=== PATIENT | female | born 1940 | race Caucasian/White ===

== ENCOUNTER → 2016-11-09 | Outpatient (CLI) | payer MEDICARE, BC ==
--- NOTE | 2016-11-12 09:45 | MM ---
Reason for exam: screening (asymptomatic). Last mammogram was performed 1 year and 1 month ago. History: Patient is postmenopausal. Benign stereotactic core biopsy of the right breast, March 25, 2003. Core biopsy of the right breast. Excisional biopsy of the left breast. 2 excisional biopsies of the right breast. Took estrogen for 23 years 5 months. Physical Findings: A clinical breast exam by your physician is recommended on an annual basis and results should be correlated with mammographic findings. MG 3D Screening Mammo W/Cad Bilateral CC and MLO view(s) were taken. Prior study comparison: October 06, 2015, bilateral MG 3d screening mammo w/cad. August 23, 2014, bilateral MG screening mammo w CAD. August 19, 2013, bilateral MG screening mammo w CAD. The breast tissue is heterogeneously dense. This may lower the sensitivity of mammography. There are bilateral stable masses. No suspicious abnormality. No significant changes when compared with prior studies. ASSESSMENT: Benign, BI-RAD 2 RECOMMENDATION: Routine screening mammogram of both breasts in 1 year.
--- NOTE | 2016-11-12 12:00 | BD ---
EXAMINATION TYPE: MG DEXA axial skeleton. DATE OF EXAM: 11/09/2016 COMPARISON: 08.23.2014 CLINICAL HISTORY: M89.9 OSTEOPENIA Height: 62 Weight: 184 FRAX RISK QUESTIONS: Alcohol (3 or more units per day): NO Family History (Parent hip fracture): NO Glucocorticoids (More than 3mos): NO (Ex: prednisone, prednisolone, methylprednisolone, dexamethasone, and hydrocortisone). History of Fracture in Adulthood: NO Secondary Osteoporosis: NO 1. Type 1 Diabetes: NO INSULIN 2. Hyperthyroidism: NO 3. Menopause before 45: YES 4. Malnutrition: NO 5. Chronic liver disease: NO Rheumatoid Arthritis: NO Current Tobacco Use: NO RISK FACTORS HISTORY OF: Family History of Osteoporosis: NONE KNOWN Active: YES Diet low in dairy products/other sources of calcium: NO Postmenopausal woman: HYST AT 30 YRS OLD, UNSURE OF WHEN HORMONAL MENOPAUSE OCCURRED. Take estrogen and/or progesterone medications: IN PAST FOR 20 YRS How lon YRS Lost more than 2 inches in height since high school: UNSURE Frequent falls: STROKE VICTIM Hyperparathyroidism: NO Adrenal Insufficiency: NO MEDICATIONS: Thyroid Medications: YES, SYNTHROID How Lon YRS Additional Medications: BP MEDS, HEART MEDS, DIABETIC MEDS, REFLUX MED, STATINS FOR CHOLESTEROL, CALC IUM AND VIT D Additional History: HX OF 2 STROKES, HYPERTENSION, DIABETES, HEART DISEASE EXAM MEASUREMENTS: Bone mineral densitometry was performed using the 51edj System. Bone mineral density as measured about the Lumbar spine is: ----- L1-L4(G/cm2): 1.543 T Score Values are as follows: ----- L1: 0.4 ----- L2: 3.0 ----- L3: 4.7 ----- L4: 3.8 ----- L1-L4: 3.0 Bone mineral density has: Increased 6.1% since study of: 08.23.2014 Bone mineral density about the R hip (g/cm2): 0.932 Bone mineral density about the L hip (g/cm2): 1.044 T Score values are as follows: -----R Neck: -1.2 -----L Neck: -0.9 -----R Total: -0.6 -----L Total: 0.3 Bone mineral density has: Increased 1.9% since study of: 08.23.2014 FRAX%'S: THERE IS A 10.3% CHANCE OF A MAJOR OSTEOPOROTIC FX AND A 1.8% CHANCE FOR HIP FX....PROBABI LITY IN 10 YRS TIME IMPRESSION: Osteopenia (T Score between -2.5 and -1) as noted by T score values There is slightly increased risk of fracture and the patient may be considered for treatment. Re-Screen 2-5 years FOR THE RIGHT HIP ONLY AT THE NECK. NOTE: T-SCORE=SD OF THE YOUNG ADULT MEAN.
== END | disposition home or self-care (01) ==
LOC: RADMAMWWP 11:39
PROVIDERS: ATTEND Obstetrics & Gynecology
DX: Z12.31 Encounter for screening mammogram for malignant neoplasm of breast (principal); M85.80 Other specified disorders of bone density and structure, unspecified site
CPT/HCPCS: 77080; 77063; G0202

== ENCOUNTER → 2017-04-24 | Outpatient (CLI) | payer MEDICARE, BC ==
[2017-04-24 08:56] LABS: HCT 41.6 % (34.0-46.0); HGB 13.1 gm/dL (11.4-16.0); MCH 29.3 pg (25.0-35.0); MCHC 31.5 g/dL (31.0-37.0); MCV 93.1 fL (80.0-100.0); Mean Platelet Volume 7.2; Platelet Count 323 k/uL (150-450); RBC 4.47 m/uL (3.80-5.40); RDW 14.2 % (11.5-15.5); WBC 8.5 k/uL (3.8-10.6)
[2017-04-24 12:05] LABS: ALT 29 U/L (9-52); AST 26 U/L (14-36); Albumin 4.3 g/dL (3.5-5.0); Alkaline Phosphatase 86 U/L (38-126); Anion Gap 12 mmol/L; Blood Urea Nitrogen 18 mg/dL (7-17); Carbon Dioxide 26 mmol/L (22-30); Chloride 101 mmol/L (98-107); Cholesterol 157 mg/dL (<200); Glucose 115 mg/dL (74-99); HDL Cholesterol 41 mg/dL (40-60); LDL Cholesterol,Calculated 48 mg/dL (0-99); Sodium 139 mmol/L (137-145); Total Bilirubin 0.3 mg/dL (0.2-1.3); Total Protein 6.8 g/dL (6.3-8.2); Triglycerides 338 mg/dL (<150)
[2017-04-24 12:19] LABS: T4, Free (Free Thyroxine) 1.06 ng/dL (0.78-2.19)
[2017-04-24 19:05] LABS: Hemoglobin A1C 6.3 % (4.0-6.0)
== END | disposition home or self-care (01) ==
LOC: LABWHC1 08:16
PROVIDERS: ATTEND Internal Medicine
DX: Z00.01 Encounter for general adult medical examination with abnormal findings (principal); E11.9 Type 2 diabetes mellitus without complications; I11.9 Hypertensive heart disease without heart failure; E03.9 Hypothyroidism, unspecified; K21.0 Gastro-esophageal reflux disease with esophagitis; E78.2 Mixed hyperlipidemia
CPT/HCPCS: 36415; 80053; 80061; 82043; 82570; 83036; 84439; 84443; 85027

== ENCOUNTER → 2017-11-14 | Outpatient (CLI) | payer MEDICARE, BC ==
--- NOTE | 2017-11-15 11:31 | MM ---
Reason for exam: screening (asymptomatic). Last mammogram was performed 1 year ago. History: Patient is postmenopausal and history of other cancer. Family history of breast cancer in 2 maternal aunts. Benign stereotactic core biopsy of the right breast, March 25, 2003. Core biopsy of the right breast. Excisional biopsy of the left breast. 2 excisional biopsies of the right breast. Took estrogen for 23 years 5 months. Physical Findings: A clinical breast exam by your physician is recommended on an annual basis and results should be correlated with mammographic findings. MG 3D Screening Mammo W/Cad Bilateral CC and MLO view(s) were taken. Prior study comparison: November 09, 2016, bilateral MG 3d screening mammo w/cad. October 06, 2015, bilateral MG 3d screening mammo w/cad. The breast tissue is heterogeneously dense. This may lower the sensitivity of mammography. There are benign appearing round calcifications bilaterally. There is chronic nodularity bilaterally. ASSESSMENT: Benign, BI-RAD 2 RECOMMENDATION: Routine screening mammogram of both breasts in 1 year.
== END ==
LOC: RADMAMWWP 10:10
PROVIDERS: ATTEND Obstetrics & Gynecology
DX: Z12.31 Encounter for screening mammogram for malignant neoplasm of breast (principal)
CPT/HCPCS: 77063; 77067

== ENCOUNTER 2018-04-28 09:55 | Emergency (ER) | payer MEDICARE, BC ==
[2018-04-28] MEDS ORDERED: SODIUM CHLORIDE 0.9% 1,000 ML IV STA (10:25)
--- NOTE | 2018-04-28 10:44 | ED ---
Abdominal Pain HPI - General Chief Complaint: Abdominal Pain Stated Complaint: lower abdominal pain Time Seen by Provider: 04/28/18 10:19 Source: patient, RN notes reviewed Mode of arrival: ambulatory Limitations: no limitations - History of Present Illness Initial Comments: 78-year-old female presents emergency Department chief complaint lower abdominal pain. Patient states she's had extreme pain for last 3 days. She did have some relief after a bowel movement today. Patient states pain is still present denies any dysuria no hematuria. Patient has a history of diverticulosis with no recent infections. Patient denies any bloody stools, mucousy stools. Patient has no current nausea vomiting. Patient reports fever 2 nights ago no current fever. Denies any chest pain or shortness breath. - Related Data Home Medications Medication Instructions Recorded Confirmed Atenolol [Tenormin] 50 mg PO DAILY 08/20/13 04/28/18 Calcium Carbonate/Vitamin D3 1 tab PO DAILY 08/20/13 04/28/18 [Caltrate 600 + D Tablet] Levothyroxine Sodium [Synthroid] 50 mcg PO DAILY 08/20/13 04/28/18 Multivitamins, Thera [Multivitamin] 1 tab PO DAILY 08/20/13 04/28/18 Omeprazole [PriLOSEC] 20 mg PO DAILY 08/20/13 04/28/18 Propafenone [Rythmol] 150 mg PO BID 08/20/13 04/28/18 Simvastatin [Zocor] 40 mg PO HS 08/20/13 04/28/18 Losartan Potassium 50 mg PO DAILY 04/28/18 04/28/18 glipiZIDE [Glucotrol] 2.5 mg PO AC-BRKFST 04/28/18 04/28/18 hydrALAZINE HCL [Apresoline] 50 mg PO TID 04/28/18 04/28/18 Previous Rx's Medication Instructions Recorded Ciprofloxacin HCl [Cipro] 500 mg PO Q12HR #20 tablet 04/28/18 metroNIDAZOLE [Flagyl] 500 mg PO TID #30 tab 04/28/18 Allergies Allergy/AdvReac Type Severity Reaction Status Date / Time No Known Allergies Allergy Verified 04/28/18 12:02 Review of Systems ROS Statement: Those systems with pertinent positive or pertinent negative responses have been documented in the HPI. ROS Other: All systems not noted in ROS Statement are negative. Past Medical History Past Medical History: CVA/TIA, Diabetes Mellitus, Deep Vein Thrombosis (DVT), GERD/Reflux, Hyperlipidemia, Hypertension, Memory Impairment Additional Past Medical History / Comment(s): change in bowel habits, DVT years ago during a History of Any Multi-Drug Resistant Organisms: None Reported Past Surgical History: Hysterectomy, Tonsillectomy Past Anesthesia/Blood Transfusion Reactions: No Reported Reaction Past Psychological History: No Psychological Hx Reported Smoking Status: Former smoker Past Alcohol Use History: None Reported Past Drug Use History: None Reported General Exam Limitations: no limitations General appearance: alert, in no apparent distress Head exam: Present: atraumatic, normocephalic, normal inspection Eye exam: Present: normal appearance, PERRL, EOMI. Absent: scleral icterus, conjunctival injection, periorbital swelling ENT exam: Present: normal exam, normal oropharynx, mucous membranes moist, TM's normal bilaterally Neck exam: Present: normal inspection, full ROM. Absent: tenderness, meningismus, lymphadenopathy Respiratory exam: Present: normal lung sounds bilaterally. Absent: respiratory distress, wheezes, rales, rhonchi, stridor Cardiovascular Exam: Present: regular rate, normal rhythm, normal heart sounds. Absent: systolic murmur, diastolic murmur, rubs, gallop, clicks GI/Abdominal exam: Present: soft, tenderness (Mild to moderate lower abdominal) , normal bowel sounds. Absent: distended, guarding, rebound, rigid Back exam: Absent: CVA tenderness (R), CVA tenderness (L) Skin exam: Present: warm, dry, intact, normal color. Absent: rash Course Vital Signs 04/28/18 10:06 Temperature 97.5 F L Pulse Rate 74 Respiratory 20 Rate Blood Pressure 186/88 O2 Sat by Pulse 99 Oximetry Medical Decision Making - Medical Decision Making 78-year-old female presented for abdominal pain. CT shows evidence of acute diverticulitis rule out concentric mass after treatment with colonoscopy. Patient was offered admission to the hospital though she declines. She would rather try oral pills at this time I did one of the risk and complications. She understands. She'll follow-up with her PCP and will follow-up for colonoscopy. - Lab Data Result diagrams: 04/28/18 11:05 04/28/18 11:05 Lab Results 04/28/18 04/28/18 04/28/18 Range/Units 11:05 11:05 11:05 WBC 7.8 (3.8-10.6) k/uL RBC 4.50 (3.80-5.40) m/uL Hgb 13.7 (11.4-16.0) gm/dL Hct 41.1 (34.0-46.0) % MCV 91.3 (80.0-100.0) fL MCH 30.4 (25.0-35.0) pg MCHC 33.3 (31.0-37.0) g/dL RDW 13.7 (11.5-15.5) % Plt Count 308 (150-450) k/uL Neutrophils % 59 % Lymphocytes % 27 % Monocytes % 8 % Eosinophils % 3 % Basophils % 1 % Neutrophils # 4.6 (1.3-7.7) k/uL Lymphocytes # 2.1 (1.0-4.8) k/uL Monocytes # 0.6 (0-1.0) k/uL Eosinophils # 0.3 (0-0.7) k/uL Basophils # 0.1 (0-0.2) k/uL Sodium 138 (137-145) mmol/L Potassium 5.1 (3.5-5.1) mmol/L Chloride 104 (98-107) mmol/L Carbon Dioxide 25 (22-30) mmol/L Anion Gap 9 mmol/L BUN 24 H (7-17) mg/dL Creatinine 0.91 (0.52-1.04) mg/dL Est GFR (CKD-EPI)AfAm 70 (>60 ml/min/1.73 sqM) Est GFR (CKD-EPI)NonAf 61 (>60 ml/min/1.73 sqM) Glucose 86 (74-99) mg/dL Plasma Lactic Acid [place] 1.1 (0.7-2.0) mmol/L Calcium 10.0 (8.4-10.2) mg/dL Total Bilirubin 0.8 (0.2-1.3) mg/dL AST 41 H (14-36) U/L ALT 32 (9-52) U/L Alkaline Phosphatase 61 (38-126) U/L Total Protein 8.0 (6.3-8.2) g/dL Albumin 4.5 (3.5-5.0) g/dL Amylase 87 (30-110) U/L Lipase 185 (23-300) U/L Urine Color Urine Appearance (Clear) Urine pH (5.0-8.0) Ur Specific [place] (1.001-1.035) Urine Protein (Negative) Urine Glucose (UA) (Negative) Urine Ketones (Negative) Urine Blood (Negative) Urine Nitrite (Negative) Urine Bilirubin (Negative) Urine Urobilinogen (<2.0) mg/dL Ur Leukocyte Esterase (Negative) 04/28/18 Range/Units 11:05 WBC (3.8-10.6) k/uL RBC (3.80-5.40) m/uL Hgb (11.4-16.0) gm/dL Hct (34.0-46.0) % MCV (80.0-100.0) fL MCH (25.0-35.0) pg MCHC (31.0-37.0) g/dL RDW (11.5-15.5) % Plt Count (150-450) k/uL Neutrophils % % Lymphocytes % % Monocytes % % Eosinophils % % Basophils % % Neutrophils # (1.3-7.7) k/uL Lymphocytes # (1.0-4.8) k/uL Monocytes # (0-1.0) k/uL Eosinophils # (0-0.7) k/uL Basophils # (0-0.2) k/uL Sodium (137-145) mmol/L Potassium (3.5-5.1) mmol/L Chloride (98-107) mmol/L Carbon Dioxide (22-30) mmol/L Anion Gap mmol/L BUN (7-17) mg/dL Creatinine (0.52-1.04) mg/dL Est GFR (CKD-EPI)AfAm (>60 ml/min/1.73 sqM) Est GFR (CKD-EPI)NonAf (>60 ml/min/1.73 sqM) Glucose (74-99) mg/dL Plasma Lactic Acid [place] (0.7-2.0) mmol/L Calcium (8.4-10.2) mg/dL Total Bilirubin (0.2-1.3) mg/dL AST (14-36) U/L ALT (9-52) U/L Alkaline Phosphatase (38-126) U/L Total Protein (6.3-8.2) g/dL Albumin (3.5-5.0) g/dL Amylase (30-110) U/L Lipase (23-300) U/L Urine Color Light Yellow Urine Appearance Clear (Clear) Urine pH 5.5 (5.0-8.0) Ur Specific [place] 1.004 (1.001-1.035) Urine Protein Negative (Negative) Urine Glucose (UA) Negative (Negative) Urine Ketones Negative (Negative) Urine Blood Negative (Negative) Urine Nitrite Negative (Negative) Urine Bilirubin Negative (Negative) Urine Urobilinogen <2.0 (<2.0) mg/dL Ur Leukocyte Esterase Negative (Negative) Disposition Clinical Impression: Diverticulitis Disposition: HOME SELF-CARE Condition: Stable Instructions (If sedation given, give patient instructions): Diverticulitis (ED ) Additional Instructions: Please return to the Emergency Department if symptoms worsen or any other concerns. Prescriptions: Ciprofloxacin HCl [Cipro] 500 mg PO Q12HR #20 tablet metroNIDAZOLE [Flagyl] 500 mg PO TID #30 tab Is patient prescribed a controlled substance at d/c from ED?: No Referrals: Amos Vu MD [Primary Care Provider] - 1-2 days Time of Disposition: 13:03
[2018-04-28 11:23] LABS: Basophils # (A) 0.1 k/uL (0-0.2); Basophils % (A) 1 %; Eosinophils # (A) 0.3 k/uL (0-0.7); Eosinophils % (A) 3 %; HCT 41.1 % (34.0-46.0); HGB 13.7 gm/dL (11.4-16.0); Lymphocytes # (A) 2.1 k/uL (1.0-4.8); Lymphocytes % (A) 27 %; MCH 30.4 pg (25.0-35.0); MCHC 33.3 g/dL (31.0-37.0); MCV 91.3 fL (80.0-100.0); Mean Platelet Volume 6.8; Monocytes # (A) 0.6 k/uL (0-1.0); Monocytes % (A) 8 %; Neutrophils # (A) 4.6 k/uL (1.3-7.7); Neutrophils % (A) 59 %; Platelet Count 308 k/uL (150-450); RDW 13.7 % (11.5-15.5); WBC 7.8 k/uL (3.8-10.6)
[2018-04-28 11:24] LABS: Appearance,Urine Clear (Clear); Bilirubin,Urine Negative (Negative); Blood,Urine Negative (Negative); Color,Urine Light Yellow; Glucose,Urine (UA) Negative (Negative); Ketones,Urine Negative (Negative); Leukocyte Esterase,Urine Negative (Negative); Nitrite,Urine Negative (Negative); PH, Urine 5.5 (5.0-8.0); Protein,Urine Negative (Negative); Specific Gravity,Urine 1.004 (1.001-1.035); Urobilinogen,Urine <2.0 mg/dL (<2.0)
[2018-04-28 12:00] LABS: Total Bilirubin 0.8 mg/dL (0.2-1.3)
[2018-04-28 12:03] LABS: Albumin 4.5 g/dL (3.5-5.0); Potassium 5.1 mmol/L (3.5-5.1)
--- NOTE | 2018-04-28 12:41 | CT ---
EXAMINATION TYPE: CT abdomen pelvis w con DATE OF EXAM: 04/28/2018 HISTORY: Generalized abdominal pain. CT DLP: 902.6mGycm Automated Exposure Control for Dose Reduction was Utilized. CONTRAST: CT scan of the abdomen and pelvis is performed without oral but with IV Contrast, patient injected wi th 100 mL of Isovue 300. COMPARISON: CT abdomen pelvis May 08, 2012 FINDINGS: LUNG BASES: No significant abnormality is appreciated. LIVER/GB: No significant abnormality is appreciated. PANCREAS: No significant abnormality is seen. SPLEEN: No significant abnormality is seen. ADRENALS: No significant abnormality is seen. KIDNEYS: No significant abnormality is seen. BOWEL: Evaluation bowel is suboptimal secondary to lack of enteric contrast. Stomach is poorly disten ded and thus suboptimally evaluated. Normal-appearing appendix is seen descending from the cecum in t he right pelvis. No suspicious small or large bowel dilatation is present. There is mild wall thicken ing involving the mid to distal left colon extending into the proximal sigmoid colon. There is divert icular formation with moderate to severe focal wall thickening and mild ill-defined fluid and fat str anding in the mid sigmoid colon of the left pelvis near axial image 71. Mild wall thickening past thi s point in the mid to distal sigmoid colon is present. UTERUS/ADNEXA: Uterus is surgically absent or markedly atrophic. Scattered pelvic phleboliths are see n. LYMPH NODES: No greater than 1cm abdominal or pelvic lymph nodes are appreciated. OSSEOUS STRUCTURES: No significant abnormality is seen. OTHER: No significant additional abnormality is seen. IMPRESSION: New mild to moderate acute diverticulitis involving proximal to mid sigmoid colon centere d in the pelvis just left of midline. Correlate clinically. Follow-up colonoscopy after treatment adv ised if has not been performed in last 3-5 years to rule out concentric neoplasm.
[2018-04-28 13:14] VITALS: BP 161/88; PULSE 54; RESP 18; TEMP 97.1
== END 2018-04-28 13:14 | disposition home or self-care (01) ==
LOC: EC 09:55
DX: K57.92 Diverticulitis of intestine, part unspecified, without perforation or abscess without bleeding (principal); E11.9 Type 2 diabetes mellitus without complications; K21.9 Gastro-esophageal reflux disease without esophagitis; E78.5 Hyperlipidemia, unspecified; I10 Essential (primary) hypertension; Z87.891 Personal history of nicotine dependence; Z79.899 Other long term (current) drug therapy
CPT/HCPCS: 36415; 80053; 82150; 83605; 83690; 85025; 81003; 74177; 99284; 96360; 96361; Q9967

== ENCOUNTER → 2018-05-23 | Outpatient (CLI) | payer MEDICARE, BC ==
[2018-05-23 09:16] LABS: HCT 40.9 % (34.0-46.0); HGB 13.6 gm/dL (11.4-16.0); MCH 30.7 pg (25.0-35.0); MCHC 33.2 g/dL (31.0-37.0); MCV 92.6 fL (80.0-100.0); Mean Platelet Volume 6.8; Platelet Count 224 k/uL (150-450); RBC 4.41 m/uL (3.80-5.40); RDW 14.4 % (11.5-15.5); WBC 6.6 k/uL (3.8-10.6)
[2018-05-23 16:19] LABS: Albumin 4.4 g/dL (3.80-4.90); Albumin/Globulin Ratio 2.59 (1.60-3.17); Anion Gap 7.9 mmol/L (4.00-12.00); Calcium 9.4 mg/dL (8.7-10.3); Carbon Dioxide 25.1 mmol/L (21.6-31.8); Globulin 1.7 g/dL (1.6-3.3); LDL Cholesterol,Calculated 64.4 mg/dL (0.0-131.0); Potassium 4.8 mmol/L (3.5-5.5); Total Bilirubin 0.4 mg/dL (0.2-1.2); Total Protein 6.1 g/dL (6.2-8.2); VLDL Calculation 40.6 mg/dL (5.00-40.00)
[2018-05-23 16:27] LABS: T4, Free (Free Thyroxine) 1.1 ng/dL (0.80-1.80)
[2018-05-23 22:27] LABS: Hemoglobin A1C 6.3 % (4.0-6.0)
== END | disposition home or self-care (01) ==
LOC: LABWHC1 07:44
PROVIDERS: ATTEND Internal Medicine
DX: Z00.00 Encounter for general adult medical examination without abnormal findings (principal); E11.9 Type 2 diabetes mellitus without complications; I11.9 Hypertensive heart disease without heart failure; K21.0 Gastro-esophageal reflux disease with esophagitis; E03.9 Hypothyroidism, unspecified
CPT/HCPCS: 36415; 80053; 80061; 82043; 82570; 83036; 84439; 84443; 85027

== ENCOUNTER 2018-09-01 09:41 | Emergency (ER) | payer MEDICARE, BC ==
[2018-09-01 09:57] VITALS: TEMP 98
--- NOTE | 2018-09-01 10:16 | ED ---
General Adult HPI - General Chief complaint: Altered Mental Status Stated complaint: confusion, hx strokes Time Seen by Provider: 09/01/18 09:49 Source: patient, family, RN notes reviewed Mode of arrival: wheelchair Limitations: no limitations - History of Present Illness Initial comments: Patient is a pleasant 78-year-old female presenting to the emergency department with confusion and mental status problems. Symptoms have been present for more than a week now. Symptoms are intermittent. Patient has problems with her memory, sometimes as soon as 10 seconds after performing a function. Patient has had expressive aphasia. Patient states she is able to think of what she wants to say however different words come out. There has been no slurred speech. No isolated area of weakness. Patient does have history of similar symptoms previously associated with TIAs. Patient does have a history of intercranial hemorrhage with associated symptoms approximately 7 years ago. No surgery was done at that time. However patient was transferred to hospital. Patient does have a headache that started yesterday and has been intermittent. Headache was not sudden onset. Discomfort is currently 5/10. - Related Data Home Medications Medication Instructions Recorded Confirmed Atenolol [Tenormin] 50 mg PO DAILY 08/20/13 09/01/18 Calcium Carbonate/Vitamin D3 1 tab PO DAILY 08/20/13 09/01/18 [Caltrate 600 + D Tablet] Levothyroxine Sodium [Synthroid] 50 mcg PO DAILY 08/20/13 09/01/18 Omeprazole [PriLOSEC] 20 mg PO DAILY 08/20/13 09/01/18 Propafenone [Rythmol] 150 mg PO DAILY 08/20/13 09/01/18 Simvastatin [Zocor] 40 mg PO HS 08/20/13 09/01/18 hydrALAZINE HCL [Apresoline] 50 mg PO TID 04/28/18 09/01/18 Losartan Potassium 50 mg PO DAILY 09/01/18 09/01/18 Multivit-Min/Iron/Folic/Lutein 1 tab PO DAILY 09/01/18 09/01/18 [Centrum Silver Women Tablet] glipiZIDE XL [Glucotrol Xl] 2.5 mg PO DAILY 09/01/18 09/01/18 Allergies Allergy/AdvReac Type Severity Reaction Status Date / Time No Known Allergies Allergy Verified 09/01/18 10:33 Review of Systems ROS Statement: Those systems with pertinent positive or pertinent negative responses have been documented in the HPI. ROS Other: All systems not noted in ROS Statement are negative. Constitutional: Denies: fever Eyes: Denies: eye pain ENT: Denies: ear pain Respiratory: Denies: cough Cardiovascular: Denies: chest pain Endocrine: Denies: fatigue Gastrointestinal: Denies: abdominal pain Genitourinary: Denies: dysuria Musculoskeletal: Denies: back pain Skin: Denies: rash Neurological: Reports: headache, confusion. Denies: weakness Past Medical History Past Medical History: CVA/TIA, Diabetes Mellitus, Deep Vein Thrombosis (DVT), GERD/Reflux, Hyperlipidemia, Hypertension, Memory Impairment Additional Past Medical History / Comment(s): change in bowel habits, DVT years ago during a History of Any Multi-Drug Resistant Organisms: None Reported Past Surgical History: Hysterectomy, Tonsillectomy Past Anesthesia/Blood Transfusion Reactions: No Reported Reaction Past Psychological History: No Psychological Hx Reported Smoking Status: Former smoker Past Alcohol Use History: None Reported Past Drug Use History: None Reported General Exam Limitations: no limitations General appearance: alert, in no apparent distress Head exam: Present: atraumatic, normocephalic Eye exam: Present: normal appearance, PERRL, EOMI ENT exam: Present: normal oropharynx Neck exam: Present: normal inspection Respiratory exam: Present: normal lung sounds bilaterally Cardiovascular Exam: Present: regular rate, normal rhythm GI/Abdominal exam: Present: soft. Absent: tenderness Extremities exam: Present: normal inspection. Absent: pedal edema, calf tender ness Neurological exam: Present: alert, CN II-XII intact. Absent: motor sensory deficit Expanded Neurological exam: Present: protecting the airway Patient oriented to: Present: person, place. Absent: time Cranial nerves: EOM's Intact: Normal, Facial Sensation: Normal Sensory exam: Upper Extremity Light Touch: Normal, Lower Extremity Light Touch: Normal Motor strength exam: RUE: 5, LUE: 5, RLE: 5, LLE: 5 Eye Response: (4) open spontaneously Motor Response: (6) obeys commands Verbal Response: (4) confused conversation Psychiatric exam: Present: normal affect, normal mood Skin exam: Present: normal color Course Vital Signs 09/01/18 09/01/18 09/01/18 09:52 10:15 10:30 Temperature 98.0 F Pulse Rate 74 66 60 Respiratory 18 17 17 Rate Blood Pressure 152/86 198/97 190/100 O2 Sat by Pulse 96 95 95 Oximetry - Reevaluation(s) Reevaluation #1: 09/01/18 11:48 Patient is not considered a TPA candidate secondary to onset of symptoms greater than 4.5 hours. 09/01/18 13:15 Case was discussed with Dr. Vu who does recommend transfer of this patient. He is not comfortable with neurology coverage not been present at nighttime as well as possibility of neoplasm. Patient and family reevaluated and updated. They are in agreement with transfer to [facility]. Case was discussed in detail with Dr. Naayk, who will accept transfer. Case was also discussed with Dr. Gil who does recommend aspirin and agreeable to transfer. He did review films including CTA. EKG Findings - EKG Comments: EKG Findings:: Sinus rhythm at 66. For screening AV block CA of 234. QRS 94. QT 398. QTC 417. Normal axis. Normal QRS. No acute ST change. Medical Decision Making - Lab Data Result diagrams: 09/01/18 10:15 09/01/18 10:15 Lab Results 09/01/18 09/01/18 09/01/18 Range/Units 10:15 10:15 10:15 WBC 7.0 (3.8-10.6) k/uL RBC 4.48 (3.80-5.40) m/uL Hgb 13.3 (11.4-16.0) gm/dL Hct 40.7 (34.0-46.0) % MCV 90.7 (80.0-100.0) fL MCH 29.7 (25.0-35.0) pg MCHC 32.8 (31.0-37.0) g/dL RDW 14.2 (11.5-15.5) % Plt Count 268 (150-450) k/uL Neutrophils % 64 % Lymphocytes % 26 % Monocytes % 5 % Eosinophils % 3 % Basophils % 1 % Neutrophils # 4.4 (1.3-7.7) k/uL Lymphocytes # 1.8 (1.0-4.8) k/uL Monocytes # 0.3 (0-1.0) k/uL Eosinophils # 0.2 (0-0.7) k/uL Basophils # 0.1 (0-0.2) k/uL PT 10.4 (9.0-12.0) sec INR 1.0 (<1.2) APTT 22.6 (22.0-30.0) sec Sodium 139 (137-145) mmol/L Potassium 4.7 (3.5-5.1) mmol/L Chloride 104 (98-107) mmol/L Carbon Dioxide 25 (22-30) mmol/L Anion Gap 10 mmol/L BUN 17 (7-17) mg/dL Creatinine 0.92 (0.52-1.04) mg/dL Est GFR (CKD-EPI)AfAm 69 (>60 ml/min/1.73 sqM) Est GFR (CKD-EPI)NonAf 60 (>60 ml/min/1.73 sqM) Glucose 144 H (74-99) mg/dL Calcium 9.6 (8.4-10.2) mg/dL Total Bilirubin 0.4 (0.2-1.3) mg/dL AST 27 (14-36) U/L ALT 31 (9-52) U/L Alkaline Phosphatase 70 (38-126) U/L Total Protein 6.8 (6.3-8.2) g/dL Albumin 4.4 (3.5-5.0) g/dL - Radiology Data Radiology results: report reviewed (Computed tomography scan of the brain does show a area of low attenuation left temporal and occipital lobe suggestive of recent ischemia. Underlying neoplastic process not excluded.), image reviewed (Chest x-ray shows no acute process) Critical Care Time Critical Care Time: Yes Total Critical Care Time: 32 Disposition Clinical Impression: CVA (cerebral vascular accident) Disposition: OTHER INSTITUTION NOT DEFINED Is patient prescribed a controlled substance at d/c from ED?: No Referrals: Juan C Elliott MD [STAFF PHYSICIAN] - 1-2 days Time of Disposition: 13:16 - Out of Hospital Transfer - Req. Specs Out of Hospital Transfer - Requested Specifics: Other Emergency Center
[2018-09-01 10:28] LABS: Basophils # (A) 0.1 k/uL (0-0.2); Basophils % (A) 1 %; Eosinophils # (A) 0.2 k/uL (0-0.7); Eosinophils % (A) 3 %; HCT 40.7 % (34.0-46.0); HGB 13.3 gm/dL (11.4-16.0); Lymphocytes # (A) 1.8 k/uL (1.0-4.8); Lymphocytes % (A) 26 %; MCH 29.7 pg (25.0-35.0); MCHC 32.8 g/dL (31.0-37.0); MCV 90.7 fL (80.0-100.0); Mean Platelet Volume 7.2; Monocytes # (A) 0.3 k/uL (0-1.0); Monocytes % (A) 5 %; Neutrophils # (A) 4.4 k/uL (1.3-7.7); Neutrophils % (A) 64 %; Platelet Count 268 k/uL (150-450); RBC 4.48 m/uL (3.80-5.40); RDW 14.2 % (11.5-15.5)
[2018-09-01 10:37] LABS: Albumin 4.4 g/dL (3.5-5.0); Calcium 9.6 mg/dL (8.4-10.2); Potassium 4.7 mmol/L (3.5-5.1); Total Bilirubin 0.4 mg/dL (0.2-1.3); Total Protein 6.8 g/dL (6.3-8.2)
--- NOTE | 2018-09-01 11:02 | CT ---
EXAMINATION TYPE: CT brain wo con DATE OF EXAM: 09/01/2018 COMPARISON: 05/17/2011 HISTORY: Confusion, History of Stroke CT DLP: 1099.4 mGycm Automated exposure control for dose reduction was used. FINDINGS: There is an area of intermediate density involving the left temporal lobe extending into the left occ ipital lobe which may represent a recent area of acute ischemia. Underlying neoplastic process not ex cluded. Moderate generalized degenerative change with greater frontal lobe component noted. Additional areas of low-attenuation the white matter are nonspecific but most typical remote microvascular ischemia. L ow area of density in the gaurang suggestive of remote ischemia. Abnormal low attenuation in the basal g anglia suggestive of remote lacunar infarct. No acute hemorrhage. Calvarium intact. IMPRESSION: LOW AREA OF ATTENUATION INVOLVING THE LEFT TEMPORAL AND OCCIPITAL LOBE SUGGESTIVE OF RECENT ISCHEMIA. UNDERLYING NEOPLASTIC PROCESS NOT EXCLUDED. DEGENERATIVE AND NONSPECIFIC WHITE MATTER CHANGES MOST TYPICAL REMOTE ISCHEMIA.
[2018-09-01 11:07] LABS: Partial Thromboplastin Time 22.6 sec (22.0-30.0); Prothrombin Time 10.4 sec (9.0-12.0)
--- NOTE | 2018-09-01 11:23 | XR ---
EXAMINATION TYPE: XR chest 2V DATE OF EXAM: 09/01/2018 COMPARISON: Prior chest x-ray 01/12/2016 HISTORY: Altered mental status TECHNIQUE: Frontal and lateral views of the chest are obtained. FINDINGS: There is no focal air space opacity, pleural effusion, or pneumothorax seen. The cardiac silhouette size is within normal limits. There are overlying cardiac leads. The osseous structures a re intact. IMPRESSION: No acute cardiopulmonary process.
--- NOTE | 2018-09-01 12:08 | CT ---
EXAMINATION TYPE: CT angio head neck DATE OF EXAM: 09/01/2018 HISTORY: Confusion, History of stroke COMPARISON: NONE CT DLP: 428.1 mGycm. Automated Exposure Control for Dose Reduction was Utilized. TECHNIQUE: CTA scan of the neck is performed without and with IV Contrast, patient injected with 65 ml mL of Isovue 370, axial images are obtained, coronal and sagittal reformatted images are reviewed. Three-D reconstructed images are created on an independent workstation and reviewed. FINDINGS: Carotid/Vascular Structures: There appears to be multiple diminutive collaterals are seen from the ri ght subclavian with occlusion of the origin of the right vertebral artery and reconstitution at the l evel of C5 with diminutive caliber dominance on the left. There is also ostial stenosis of the left v ertebral artery origin of approximately 50%. The common carotid arteries and carotid bulbs demonstrate no hemodynamically significant stenosis. Th e left proximal internal carotid artery demonstrates approximately 50% stenosis in a short segment me asuring 6 mm at its origin from calcific atheromatous plaquing. Again note is made of left vertebral artery dominance. The bilateral internal carotid arteries, anter ior cerebral arteries, middle cerebral arteries, and posterior cerebral arteries appear patent. Howev er possibly of branch vessels of the posterior circulation are seen in the occipital lobe and left po sterior parietal lobe in the watershed distribution in the region of the patient's known abnormality on the recent CT brain of the same date compatible with infarct. No suspicious enhancing masses seen however there is somewhat limitation given arterial phase enhancement and MRI to exclude small underl morgan mass/neoplasm. Other: Visualized portions of the brain are discussed on the brain dictation of the same date. Lung a pices demonstrate minimal subsegmental atelectasis and biapical pleural parenchymal scarring as well as few paraseptal blebs. Right thyroid nodule measures 9 mm and could be further evaluated with thyro id ultrasound on a nonemergent basis degenerative changes of the osseous structures are seen. IMPRESSION: 1. 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 Carotid ultrasound could assess f or directionality of flow of the vertebral arteries to exclude subclavian steal. 2. 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 No discrete underlying mass is seen however there is somewhat limited e valuation in arterial phase imaging and therefore MRI with contrast is recommended to exclude small u nderlying mass. 3. No major intracranial vasculature occlusion or hemodynamically significant stenosis.
[2018-09-01] MEDS ORDERED: ASPIRIN 81 MG PO STA (13:14)
[2018-09-01 14:05] VITALS: BP 202/119; PULSE 54; RESP 11
== END 2018-09-01 14:10 | disposition short-term general hospital (02) ==
LOC: EC 09:41
DX: I63.9 Cerebral infarction, unspecified (principal); R47.01 Aphasia; R93.0 Abnormal findings on diagnostic imaging of skull and head, not elsewhere classified; E11.9 Type 2 diabetes mellitus without complications; K21.9 Gastro-esophageal reflux disease without esophagitis; E78.5 Hyperlipidemia, unspecified; I10 Essential (primary) hypertension; Z87.891 Personal history of nicotine dependence; Z79.84 Long term (current) use of oral hypoglycemic drugs; Z79.890 Hormone replacement therapy; Z79.899 Other long term (current) drug therapy; Z86.718 Personal history of other venous thrombosis and embolism
CPT/HCPCS: 36415; 93005; 80053; 85025; 85610; 85730; 71046; 70496; 70450; 70498; 99291; Q9967

== ENCOUNTER 2018-10-04 20:03 | Emergency (ER) | payer MEDICARE, BC ==
[2018-10-04] MEDS ORDERED: ACETAMINOPHEN SUPPOSITORY 650 MG SUPP RECTAL STA (20:19)
--- NOTE | 2018-10-04 20:24 | ED ---
General Adult HPI - General Chief complaint: Altered Mental Status Stated complaint: Altered mental status Time Seen by Provider: 10/04/18 20:18 Source: EMS Mode of arrival: EMS Limitations: altered mental status - History of Present Illness Initial comments: Dictation was produced using [employer] dictation software. please excuse any gra mmatical, word or spelling errors. Chief Complaint: 78-year-old female with multiple comorbidities presents with altered mental status. History of Present Illness: 70-year-old female she had recent brain surgery for glioblastoma multiforme performed at [facility]. Patient was just discharged home on Saturday. Today she was found to be mentally impaired by family. Patient was brought to the emergency department by EMS. They report that patient did have a fever. She is also noted to have pain in her left lower extremity. Patient unable to provide HPI at this time. According to EMS she was alert and oriented 1/4. Unable to obtain secondary to mental status PHYSICAL EXAM: General Impression: Alert and oriented x1, not in acute distress, uncooperative, eyes open HEENT: Normocephalic atraumatic, extra-ocular movements intact, pupils equal and reactive to light bilaterally, mucous membranes moist. Cardiovascular: Heart regular rate and rhythm, S1&S2 audible, no murmurs, rubs or gallops Chest: Lungs clear to auscultation bilaterally, no rhonchi, no wheeze, no rales Abdomen: Bowel sounds present, abdomen soft, non-tender, non-distended, no organomegaly Musculoskeletal: Pulses present and equal in all extremities, no peripheral edema, Paty palpation over the left popliteal region Motor: no focal deficits noted Neurological: CN II-XII grossly intact, no gross focal neurologic deficit Skin: Intact with no visualized rashes ED course: 78-year-old female presents with altered mental status. She was recently discharged from [facility] post intracranial surgery to treat glioblastoma multiformity vital signs upon arrival shows him for 11.3, heart rate of 112, worse vital signs within acceptable limits. Laboratory evaluation obtained. CBC, coag panel, metabolic panel is grossly unremarkable she has a sodium of 133. Chest x-ray shows mild cardiomegaly without any acute pulmonary process. Computed tomography scan of the brain was obtained showing post surgical changes versus evolving acute infarct. Unable to make this assessment given that we do not have any old films for comparison. Patient does not have any meningismal signs. Surgical site seems clean dry and intact. Discussed patient case Dr. Dobbs was aware of the patient. Patient had troponin of 0.339 however she appears to be well in no acute distress. He is al so concerned of infection. Highly likely that patient's elevated troponin is from acute infection. Urinalysis shows positive nitrites with 10 white blood cells. Patient given breast regimen antibiotics for concerns of sepsis. Give patient clinical presentation we will transfer patient to [facility]. Except physician is Dr. Dawn. Patient given 10 mg of IV Decadron for concerns of intracranial swelling. EKG interpretation: Ventricular rate 111, sinus tachycardia, AL interval 204, QRS 72, QTC 421. No AL prolongation, no QTC prolongation, no ST or T-wave changes noted. Overall, this EKG is unremarkable - Related Data Home Medications Medication Instructions Recorded Confirmed Levothyroxine Sodium [Synthroid] 50 mcg PO DAILY@0630 08/20/13 10/04/18 Omeprazole [PriLOSEC] 20 mg PO BID@0630,1630 08/20/13 10/04/18 Propafenone [Rythmol] 150 mg PO DAILY 08/20/13 10/04/18 Simvastatin [Zocor] 40 mg PO HS 08/20/13 10/04/18 Multivit-Min/Iron/Folic/Lutein 1 tab PO DAILY 09/01/18 10/04/18 [Centrum Silver Women Tablet] glipiZIDE XL [Glucotrol Xl] 2.5 mg PO DAILY 09/01/18 10/04/18 Acetaminophen Tab [Tylenol Tab] 650 mg PO Q6H PRN 10/04/18 10/04/18 Docusate [Colace] 100 mg PO BID PRN 10/04/18 10/04/18 Melatonin 3 mg PO HS PRN 10/04/18 10/04/18 Metoprolol Tartrate [Lopressor] 25 mg PO BID 10/04/18 10/04/18 Polyethylene Glycol 3350 [Miralax] 17 gm PO DAILY PRN 10/04/18 10/04/18 Sennosides [Senna] 8.6 mg PO BID PRN 10/04/18 10/04/18 levETIRAcetam [Keppra] 500 mg PO BID 10/04/18 10/04/18 Allergies Allergy/AdvReac Type Severity Reaction Status Date / Time No Known Allergies Allergy Verified 10/04/18 21:22 Review of Systems ROS Statement: Those systems with pertinent positive or pertinent negative responses have been documented in the HPI. ROS Other: All systems not noted in ROS Statement are negative. Past Medical History Past Medical History: CVA/TIA, Diabetes Mellitus, Deep Vein Thrombosis (DVT), GERD/Reflux, Hyperlipidemia, Hypertension, Memory Impairment Additional Past Medical History / Comment(s): change in bowel habits, DVT years ago during a History of Any Multi-Drug Resistant Organisms: None Reported Past Surgical History: Hysterectomy, Tonsillectomy Additional Past Surgical History / Comment(s): brain surgery Past Anesthesia/Blood Transfusion Reactions: No Reported Reaction Past Psychological History: No Psychological Hx Reported Smoking Status: Former smoker Past Alcohol Use History: None Reported Past Drug Use History: None Reported General Exam Limitations: altered mental status Course Vital Signs 10/04/18 10/04/18 10/04/18 20:10 21:57 22:30 Temperature 101.3 F H 99.6 F Pulse Rate 112 H 102 H 103 H Respiratory 20 20 20 Rate Blood Pressure 138/91 126/75 118/74 O2 Sat by Pulse 97 98 98 Oximetry Medical Decision Making - Lab Data Result diagrams: 10/04/18 20:44 10/04/18 20:44 Lab Results 10/04/18 10/04/18 10/04/18 Range/Units 20:44 20:44 20:44 WBC 10.1 (3.8-10.6) k/uL RBC 3.81 (3.80-5.40) m/uL Hgb 11.7 (11.4-16.0) gm/dL Hct 35.3 (34.0-46.0) % MCV 92.6 (80.0-100.0) fL MCH 30.8 (25.0-35.0) pg MCHC 33.3 (31.0-37.0) g/dL RDW 18.2 H (11.5-15.5) % Plt Count 274 (150-450) k/uL Neutrophils % 67 % Lymphocytes % 20 % Monocytes % 10 % Eosinophils % 0 % Basophils % 1 % Neutrophils # 6.8 (1.3-7.7) k/uL Lymphocytes # 2.0 (1.0-4.8) k/uL Monocytes # 1.0 (0-1.0) k/uL Eosinophils # 0.0 (0-0.7) k/uL Basophils # 0.1 (0-0.2) k/uL Anisocytosis Slight PT (9.0-12.0) sec INR (<1.2) APTT (22.0-30.0) sec Sodium 133 L (137-145) mmol/L Potassium 4.3 (3.5-5.1) mmol/L Chloride 102 (98-107) mmol/L Carbon Dioxide 20 L (22-30) mmol/L Anion Gap 11 mmol/L BUN 14 (7-17) mg/dL Creatinine 0.70 (0.52-1.04) mg/dL Est GFR (CKD-EPI)AfAm >90 (>60 ml/min/1.73 sqM) Est GFR (CKD-EPI)NonAf 83 (>60 ml/min/1.73 sqM) Glucose 90 (74-99) mg/dL Plasma Lactic Acid Quincy 1.0 (0.7-2.0) mmol/L Calcium 9.6 (8.4-10.2) mg/dL Total Bilirubin 0.4 (0.2-1.3) mg/dL AST 26 (14-36) U/L ALT 33 (9-52) U/L Alkaline Phosphatase 92 (38-126) U/L Creatine Kinase 37 (30-135) U/L Troponin I (0.000-0.034) ng/mL Total Protein 6.2 L (6.3-8.2) g/dL Albumin 3.6 (3.5-5.0) g/dL Urine Color Urine Appearance (Clear) Urine pH (5.0-8.0) Ur Specific Pickerel (1.001-1.035) Urine Protein (Negative) Urine Glucose (UA) (Negative) Urine Ketones (Negative) Urine Blood (Negative) Urine Nitrite (Negative) Urine Bilirubin (Negative) Urine Urobilinogen (<2.0) mg/dL Ur Leukocyte Esterase (Negative) Urine RBC (0-5) /hpf Urine WBC (0-5) /hpf Ur Squamous Epith Cells (0-4) /hpf Urine Bacteria (None) /hpf Urine Mucus (None) /hpf 10/04/18 10/04/18 10/04/18 Range/Units 21:42 21:42 Unknown WBC (3.8-10.6) k/uL RBC (3.80-5.40) m/uL Hgb (11.4-16.0) gm/dL Hct (34.0-46.0) % MCV (80.0-100.0) fL MCH (25.0-35.0) pg MCHC (31.0-37.0) g/dL RDW (11.5-15.5) % Plt Count (150-450) k/uL Neutrophils % % Lymphocytes % % Monocytes % % Eosinophils % % Basophils % % Neutrophils # (1.3-7.7) k/uL Lymphocytes # (1.0-4.8) k/uL Monocytes # (0-1.0) k/uL Eosinophils # (0-0.7) k/uL Basophils # (0-0.2) k/uL Anisocytosis PT 10.9 (9.0-12.0) sec INR 1.0 (<1.2) APTT 22.9 (22.0-30.0) sec Sodium (137-145) mmol/L Potassium (3.5-5.1) mmol/L Chloride (98-107) mmol/L Carbon Dioxide (22-30) mmol/L Anion Gap mmol/L BUN (7-17) mg/dL Creatinine (0.52-1.04) mg/dL Est GFR (CKD-EPI)AfAm (>60 ml/min/1.73 sqM) Est GFR (CKD-EPI)NonAf (>60 ml/min/1.73 sqM) Glucose (74-99) mg/dL Plasma Lactic Acid Quincy (0.7-2.0) mmol/L Calcium (8.4-10.2) mg/dL Total Bilirubin (0.2-1.3) mg/dL AST (14-36) U/L ALT (9-52) U/L Alkaline Phosphatase (38-126) U/L Creatine Kinase (30-135) U/L Troponin I 0.339 H* (0.000-0.034) ng/mL Total Protein (6.3-8.2) g/dL Albumin (3.5-5.0) g/dL Urine Color Yellow Urine Appearance Clear (Clear) Urine pH 5.5 (5.0-8.0) Ur Specific Pickerel 1.017 (1.001-1.035) Urine Protein Negative (Negative) Urine Glucose (UA) Negative (Negative) Urine Ketones Negative (Negative) Urine Blood Negative (Negative) Urine Nitrite Positive H (Negative) Urine Bilirubin Negative (Negative) Urine Urobilinogen <2.0 (<2.0) mg/dL Ur Leukocyte Esterase Negative (Negative) Urine RBC <1 (0-5) /hpf Urine WBC 10 H (0-5) /hpf Ur Squamous Epith Cells <1 (0-4) /hpf Urine Bacteria Many H (None) /hpf Urine Mucus Few H (None) /hpf Disposition Clinical Impression: Altered mental status, Pyrexia Disposition: OTHER INSTITUTION NOT DEFINED Condition: Fair Referrals: None,Stated [Primary Care Provider] - 1-2 days Time of Disposition: 23:26 - Out of Hospital Transfer - Req. Specs Out of Hospital Transfer - Requested Specifics: Other Emergency Center ([facility]
[2018-10-04] MEDS ORDERED: VANCOMYCIN IV PER PHARMACY 1 EACH MISC MISCELLANE PRN (20:35)
[2018-10-04] MEDS ORDERED: CEFEPIME 2 GM in SODIUM CHLORIDE 0.9% 100 ML IVPB STA (20:35)
[2018-10-04] MEDS ORDERED: VANCOMYCIN 1,250 MG in SODIUM CHLORIDE 0.9% 250 ML IVPB STA (20:37)
--- NOTE | 2018-10-04 20:59 | XR ---
EXAMINATION TYPE: XR chest 1V portable DATE OF EXAM: 10/04/2018 COMPARISON: Chest x-ray September 01, 2018 HISTORY: Fever. TECHNIQUE: Single AP portable frontal upright view of the chest is obtained. FINDINGS: Diminished inspiration is seen on current study. There is no suspicious focal air space op acity, pleural effusion, or pneumothorax seen. The cardiac silhouette size is mildly enlarged with a therosclerotic thoracic aorta. Overlying EKG leads are redemonstrated. The osseous structures are in tact. IMPRESSION: Mild cardiomegaly without acute pulmonary process.
[2018-10-04] MEDS: SODIUM CHLORIDE 0.9% 500 ML 500 ML IV SCH (21:05)
[2018-10-04 21:06] LABS: Anisocytosis Slight; Basophils # (A) 0.1 k/uL (0-0.2); Basophils % (A) 1 %; Eosinophils % (A) 0 %; HCT 35.3 % (34.0-46.0); HGB 11.7 gm/dL (11.4-16.0); Lymphocytes % (A) 20 %; MCH 30.8 pg (25.0-35.0); MCHC 33.3 g/dL (31.0-37.0); MCV 92.6 fL (80.0-100.0); Mean Platelet Volume 7.7; Monocytes % (A) 10 %; Neutrophils # (A) 6.8 k/uL (1.3-7.7); Neutrophils % (A) 67 %; Platelet Count 274 k/uL (150-450); RBC 3.81 m/uL (3.80-5.40); RDW 18.2 % (11.5-15.5); WBC 10.1 k/uL (3.8-10.6)
[2018-10-04 21:09] LABS: ALT 33 U/L (9-52); AST 26 U/L (14-36); African American GFR (CKD) >90 (>60 ml/min/1.73 sqM); Albumin 3.6 g/dL (3.5-5.0); Alkaline Phosphatase 92 U/L (38-126); Anion Gap 11 mmol/L; Blood Urea Nitrogen 14 mg/dL (7-17); Calcium 9.6 mg/dL (8.4-10.2); Carbon Dioxide 20 mmol/L (22-30); Chloride 102 mmol/L (98-107); Creatine Kinase 37 U/L (30-135); Glucose 90 mg/dL (74-99); Sodium 133 mmol/L (137-145); Total Bilirubin 0.4 mg/dL (0.2-1.3); Total Protein 6.2 g/dL (6.3-8.2)
[2018-10-04 21:30] LABS: Potassium 4.3 mmol/L (3.5-5.1)
--- NOTE | 2018-10-04 21:38 | CT ---
EXAMINATION TYPE: CT brain wo con DATE OF EXAM: 10/04/2018 HISTORY: AMS, recent glioblastoma sx. CT DLP: 1099.4 mGycm. Automated Exposure Control for Dose Reduction was Utilized. TECHNIQUE: CT scan of the head is performed without contrast. COMPARISON: CT brain September 01, 2018. FINDINGS: There is no acute intracranial hemorrhage or midline shift identified. There is diffuse v entricular and sulcal prominence consistent with diffuse age-related cerebral atrophy. There is low- attenuation in the periventricular white matter consistent with chronic small vessel ischemic change. There is new left parietal craniotomy plate with hypodense area measuring 5.9 x 3.5 cm-image 25 for reference. The globes are intact and the visualized sinuses are clear. IMPRESSION: No acute intracranial hemorrhage or midline shift. There is mild diffuse age-related ce rebral atrophy and moderate to advanced chronic small vessel ischemic change redemonstrated. New lef t parietal surgical change with new area of hypodensity could reflect postsurgical edema or evolving acute infarct. Short-term follow-up CT or MRI could be performed to further evaluate.
[2018-10-04 21:57] VITALS: TEMP 99.6
[2018-10-04 22:39] LABS: Partial Thromboplastin Time 22.9 sec (22.0-30.0); Prothrombin Time 10.9 sec (9.0-12.0)
[2018-10-04 23:19] LABS: Appearance,Urine Clear (Clear); Bacteria,Urine Many /hpf; Bilirubin,Urine Negative (Negative); Blood,Urine Negative (Negative); Color,Urine Yellow; Glucose,Urine (UA) Negative (Negative); Ketones,Urine Negative (Negative); Leukocyte Esterase,Urine Negative (Negative); Mucus,Urine Few /hpf; Nitrite,Urine Positive (Negative); PH, Urine 5.5 (5.0-8.0); Protein,Urine Negative (Negative); RBC,Urine <1 /hpf (0-5); Specific Gravity,Urine 1.017 (1.001-1.035); Squamous Epithelial Cell,Urine <1 /hpf (0-4); Urobilinogen,Urine <2.0 mg/dL (<2.0); WBC,Urine 10 /hpf (0-5)
[2018-10-04] MEDS ORDERED: DEXAMETHASONE SOD PHOSPHATE 10 MG/ML 1 ML VIAL IV STA (23:23)
[2018-10-05 00:27] VITALS: BP 119/71; PULSE 93; RESP 18
[2018-10-05] MEDS ORDERED: VANCOMYCIN 1,250 MG in SODIUM CHLORIDE 0.9% 250 ML IVPB SCH (18:00)
== END 2018-10-05 01:10 | disposition other institution (70) ==
LOC: EC 20:03
DX: R50.9 Fever, unspecified (principal); R41.82 Altered mental status, unspecified; E11.9 Type 2 diabetes mellitus without complications; K21.9 Gastro-esophageal reflux disease without esophagitis; E78.5 Hyperlipidemia, unspecified; I10 Essential (primary) hypertension; I51.7 Cardiomegaly; Z86.73 Personal history of transient ischemic attack (TIA), and cerebral infarction without residual deficits; Z86.718 Personal history of other venous thrombosis and embolism; Z87.891 Personal history of nicotine dependence; Z79.890 Hormone replacement therapy; Z79.84 Long term (current) use of oral hypoglycemic drugs; Z79.899 Other long term (current) drug therapy; Z98.890 Other specified postprocedural states
CPT/HCPCS: 36415; 93005; 80053; 82550; 83605; 84484; 85025; 85610; 85730; 81001; 87040; 87086; 71045; 70450; 99285; 96365; 96367; 96366; 96375; 96361; J3370; J1100; J0692